=== PATIENT | male | born 1990 | race Hispanic/Latino ===

== ENCOUNTER 2021-12-06 10:29 | Emergency (ER) | payer OTHER ==
[~2021-12-06] VITALS: Ht 162.6 cm; Wt 76.0 kg
[2021-12-06] VITALS (8 sets, daily range): BP systolic 100–115; BP diastolic 63–74
[2021-12-06] MEDS ORDERED: TRAMADOL HCL50 MG PO (12:30)
[2021-12-06] MEDS ORDERED: NAPROXEN500 MG PO (12:30)
== END 2021-12-06 13:24 | disposition home or self-care (01) | DRG 605 ==
LOC: ED 10:29
DX: S90.811A Abrasion, right foot, initial encounter (principal); S90.31XA Contusion of right foot, initial encounter; S93.601A Unspecified sprain of right foot, initial encounter; W31.9XXA Contact with unspecified machinery, initial encounter; Y93.9 Activity, unspecified; Y92.89 Other specified places as the place of occurrence of the external cause; Y99.0 Civilian activity done for income or pay